=== PATIENT | male | born 1970 | race Asian ===

== ENCOUNTER → 2017-05-19 | Outpatient (CLI) | payer BC, OTHER | END | disposition home or self-care (01) | LOC: C.RDSM 19:25 | PROVIDERS: ATTEND Orthopaedic Surgery Sports Medicine | DX: M25.579 Pain in unspecified ankle and joints of unspecified foot (principal) ==

== ENCOUNTER → 2017-05-28 | Outpatient (CLI) | payer OTHER ==
--- NOTE | 2017-05-28 11:17 | DIAGNOSTIC IMAGING REPORT ---
MRI OF THE RIGHT ANKLE WITHOUT IV CONTRAST CLINICAL HISTORY: Right ankle pain. COMPARISON STUDY: Radiographs of the right ankle dated 05/19/2017. TECHNIQUE: MRI of the right ankle is performed utilizing various T1 and T2-weighted sequences in the axial, sagittal, and coronal planes. IV contrast was not administered for this examination. FINDINGS: There is marrow edema identified within the lateral aspect of the talar dome. There is a small osteochondral lesion identified which measures up to 9 mm. There is no evidence of instability. No additional foci of marrow edema are identified. The ankle mortise is intact. No joint effusion is seen. There has been age indeterminant rupture of the anterior tibiofibular ligament. The anterior talofibular ligament is maintained. The Achilles tendon is normal in morphology and signal intensity. The anterior, posterior, and peroneal tendons appear intact. There is mild fluid around the tibialis posterior tendon suggesting mild tenosynovitis. The deltoid and spring ligaments are intact as visualized. The regional musculature is normal in bulk and signal intensity. A bone island is incidentally noted in the lateral malleolus. Mild edema is seen superficial to the medial band of the plantar fascia. This may represent mild plantar fasciitis. Degenerative spurring is seen along the anterior tibial plafond. IMPRESSION: 1. There is marrow edema identified in the lateral talar dome with a small osteochondral defect. There is no evidence of instability. 2. No additional bony abnormality is identified. 3. Question mild plantar fasciitis involving the medial bundle. Clinical correlation will be required. 4. Question mild tenosynovitis involving the tibialis posterior tendon. The ankle tendons are intact. 5. 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 Dictated: 05/28/2017 10:58 AM Transcribed: 05/28/2017 11:17 AM Andre Electronically signed by: Sahil Lilly M.D. 05/28/2017 11:19 AM Dictated Date/Time: 05/28/2017 10:58 AM
== END | disposition home or self-care (01) ==
LOC: C.MRI 09:56
PROVIDERS: ATTEND Orthopaedic Surgery Sports Medicine
DX: M25.579 Pain in unspecified ankle and joints of unspecified foot (principal); M24.171 Other articular cartilage disorders, right ankle; S93.431A Sprain of tibiofibular ligament of right ankle, initial encounter; X58.XXXA Exposure to other specified factors, initial encounter